=== PATIENT | female | born 1985 | race Caucasian/White ===

== ENCOUNTER → 2016-10-22 | Outpatient (CLI) | payer BC ==
[~2016-10-22] MED LIST: CEFTIN 250250 MG/TAB PO; NO HOME MEDICATIONS; PERCOCET 325 MG1 TA2 PO
== END ==
LOC: COL.RAD 13:26
DX: N83.292 Other ovarian cyst, left side (principal); N94.12 Deep dyspareunia

== ENCOUNTER → 2016-12-10 | Outpatient (REF) | LOC: WSOH 11:29 | DX: Z01.89 Encounter for other specified special examinations (principal) ==